=== PATIENT | male | born 1980 | race Two or more races ===

== ENCOUNTER 2017-08-19 18:00 | Emergency (ER) | payer OTHER ==
[~2017-08-19] VITALS: Ht 177.8 cm; Wt 97.5 kg
[2017-08-19 18:14] VITALS: BP 146/100
== END 2017-08-19 18:57 | disposition home or self-care (01) ==
LOC: ER 18:01
DX: H73.012 Bullous myringitis, left ear (principal); I10 Essential (primary) hypertension; E10.9 Type 1 diabetes mellitus without complications
CPT/HCPCS: A4606; Z7610

== ENCOUNTER 2022-03-03 16:34 | Emergency (ER) | payer OTHER ==
[~2022-03-03] VITALS: Ht 177.8 cm; Wt 93.0 kg
--- NOTE | 2022-03-03 16:50 | NUR ---
TO ER BED 1, BIB FAMILY FROM HOME C/O RIGHT SIDE FACIAL DROOP X 3 DAYS, EQUAL [employer] HONING, AAOX3, BREATHING EVEN AND NON LABORED, CONNECTED TO MONITOR, AWAITING MD ORDERS
[2022-03-03] MEDS ORDERED: BLOOD SUGAR DIAGNOSTIC 1 EACH STRIP IN ONE (17:30)
[2022-03-03] MEDS ORDERED: TETR15DR17 OP (18:00)
[2022-03-03] MEDS ORDERED: PRED20TA PO (18:00)
[2022-03-03] MEDS ORDERED: VALA100026 PO (18:00)
[2022-03-03 18:32] VITALS: BP 142/96
--- NOTE | 2022-03-03 18:32 | NUR ---
Patient discharged to home in stable condition. Written and verbal after care instructions given. Patient verbalizes understanding of instruction.
== END 2022-03-03 18:33 | disposition home or self-care (01) ==
LOC: ER 16:47
DX: G51.0 Bell's palsy (principal); I10 Essential (primary) hypertension; E11.9 Type 2 diabetes mellitus without complications; Z60.2 Problems related to living alone; Z79.899 Other long term (current) drug therapy
CPT/HCPCS: 82962-TC